=== PATIENT | female | born 1950 | race African-American/Black ===

== ENCOUNTER 2016-12-13 14:24 | Emergency (ER) | payer OTHER ==
[~2016-12-13] VITALS: Ht 152.4 cm; Wt 94.0 kg
[~2016-12-13 14:24] MED LIST: 1-ME1LIQ PO; IBUP-238 PO; LANS30 PO; NOVO7030P2 SQ; ZOLP10TA3 PO
[2016-12-13 14:27] VITALS: BP 168/74; PULSE 69; RESP 13; TEMP 98; O2SAT 99
[2016-12-13] MEDS ORDERED: NOVOINJ2 SQ ×2 (15:11)
--- NOTE | 2016-12-13 15:12 | PD ---
HPI Chief Complaint: Medication Refill Request Time Seen by Provider: 15:08 Travel History International Travel<30 days: No Contact w/Intl Traveler<30days: No Traveled to known affect area: No History of Present Illness HPI 66-year-old female presents to the emergency department requesting refill on her NovoLog 70/30 insulin pen. She last took her medication yesterday morning. She does not check her blood sugars. She had an appointment with primary care provider on Friday and they canceled her appointment because he is leaving town and she will reschedule appointment after December 23 when he comes back into town. She denies symptoms of hyperglycemia or hypoglycemia. She has no other medical complaints. Denies chest pain, shortness of breath, abdominal pain, nausea, vomiting. Allergies to lisinopril and metformin. No other modifying factors or associated signs and symptoms. PFSH Past Medical History Arthritis: Yes Asthma: No Autoimmune Disease: No Blood Disorders: No Anxiety: No Depression: Yes Heart Rhythm Problems: No Cancer: No Cardiovascular Problems: Yes High Cholesterol: Yes Chemotherapy: No Chest Pain: No Congestive Heart Failure: No COPD: Yes Cerebrovascular Accident: No Diabetes: Yes Diminished Hearing: No Endocrine: Yes Gastrointestinal Disorders: Yes GERD: Yes Glaucoma: Yes Genitourinary: No Headaches: Yes Hepatitis: No Hiatal Hernia: No Hypertension: Yes Immune Disorder: No Kidney Stones: No Musculoskeletal: Yes Neurologic: Yes Psychiatric: Yes Reproductive: No Respiratory: Yes (BRONCHITIIS . SINUSITIS) Migraines: No Myocardial Infarction: No Radiation Therapy: No Renal Failure: No Seizures: No Sickle Cell Disease: No Sleep Apnea: No Thyroid Disease: No Ulcer: No Menopausal: Yes Past Surgical History Abdominal Surgery: No AICD: No Appendectomy: No Body Medical Devices: BRONCHITIS, SINUS PROBS Cardiac Surgery: Yes Cholecystectomy: No Ear Surgery: No Endocrine Surgery: No Eye Surgery: No Genitourinary Surgery: No Gynecologic Surgery: No Oral Surgery: No Pacemaker: No Thoracic Surgery: No Other Surgery: Yes (PERICARDITIS WINDOW 1999) Social History Alcohol Use: Yes (RARELY) Tobacco Use: No Substance Use: No Allergies-Medications (Allergen,Severity, Reaction): Coded Allergies: lisinopril (Unverified Allergy, Severe, Swelling, 12/13/16) metformin (Unverified Adverse Reaction, Mild, "I SPACE OUT"., 12/13/16) Reported Meds & Prescriptions Reported Meds & Active Scripts Active Novolog Mix 70-30 FlexPen Inj (Insulin Aspart Protam-Asp 70-30 Inj) 300 Unit/3 Ml Pen 30 Units SQ DAILYAC Novolog Mix 70-30 FlexPen Inj (Insulin Aspart Protam-Asp 70-30 Inj) 300 Unit/3 Ml Pen 20 Units SQ HS Reported Novolin 70-30 Inj (Insulin Human Isoph/Insulin Regular) 1,000 Unit/10 Ml Vial 20 Units SQ HS Novolin 70-30 Inj (Insulin Human Isoph/Insulin Regular) 1,000 Unit/10 Ml Vial 30 Units SQ DAILY Review of Systems Except as stated in HPI: all other systems reviewed are Neg Physical Exam Narrative GENERAL: Well-nourished, well-developed female patient, in no acute distress SKIN: Warm and dry. HEAD: Atraumatic. Normocephalic. EYES: Pupils equal and round. No scleral icterus. No injection or drainage. ENT: Mucosa pink and moist. Airway patent. NECK: Trachea midline. CARDIOVASCULAR: Regular rate. GASTROINTESTINAL: Obese. MUSCULOSKELETAL: No obvious deformities. No clubbing. No cyanosis. No edema. NEUROLOGICAL: Awake and alert. Oriented 3. No obvious cranial nerve deficits. Motor grossly within normal limits. Normal speech. PSYCHIATRIC: Appropriate mood and affect; insight and judgment normal. Data Data Last Documented VS Vital Signs Date Time Temp Pulse Resp B/P (MAP) Pulse Ox O2 Delivery O2 Flow Rate FiO2 12/13/16 15:30 12/13/16 14:27 98.0 69 13 99 Orders Orders Ed Discharge Order (12/13/16 15:17) MDM Medical Decision Making Medical Screen Exam Complete: Yes Emergency Medical Condition: Yes Medical Record Reviewed: Yes Differential Diagnosis Medication refill, hypoglycemia, hyperglycemia Narrative Course 66-year-old female presents to the emergency department for medication refill on NovoLog 70/30. Last taken yesterday. Denies symptoms of hyper or hypoglycemia. 1515: Bedside glucose 303. I spoke with Dr. Narayan, my attending physician , and he agrees the patient is stable for discharge without coverage. Prescriptions for NovoLog flexpen 70/30 prescribed for home. Patient has follow -up appointment with primary care provider after December 23. Instructed patient to follow up with primary care provider. Instructed patient to follow up with primary care provider. Patient verbalizes understanding and agreement with treatment plan. Patient is medically cleared and stable for discharge. Discussed reasons to return to the emergency department. Patient agrees with treatment plan. The patients vital signs are stable and the patient is stable for outpatient follow-up and treatment. Patient discharged home, stable and in no acute distress. Diagnosis Primary Impression: Medication refill Additional Impression: High blood sugar Referrals: [facility] Primary Care Physician Patient Instructions: Diabetic Hyperglycemia (ED), General Instructions, Medication Refill, ED Additional Instructions: Follow-up with primary care provider Return to the emergency department immediately with worsening of symptoms Med/Other Pt SpecificInfo: Prescription(s) given Scripts Insulin Aspart Protam-Asp 70-30 Inj (Novolog Mix 70-30 FlexPen Inj) 300 Unit/3 Ml Pen 30 UNITS SQ DAILYAC for Blood Sugar Management, #1 PEN 0 Refills Prov: Mariam Otto 12/13/16 Insulin Aspart Protam-Asp 70-30 Inj (Novolog Mix 70-30 FlexPen Inj) 300 Unit/3 Ml Pen 20 UNITS SQ HS for Blood Sugar Management, #1 PEN 0 Refills Prov: Mariam Otto 12/13/16 Disposition: 01 DISCHARGE HOME Condition: Stable Mariam Otto Dec 13, 2016 15:12
[2016-12-13] MEDS ORDERED: NOVO7030P2 SQ ×2 (15:23)
== END 2016-12-13 15:31 | disposition home or self-care (01) ==
LOC: NEPK 14:24
DX: Z76.0 Encounter for issue of repeat prescription (principal); E11.65 Type 2 diabetes mellitus with hyperglycemia; M19.90 Unspecified osteoarthritis, unspecified site; F32.9 Major depressive disorder, single episode, unspecified; E78.00 Pure hypercholesterolemia, unspecified; J44.9 Chronic obstructive pulmonary disease, unspecified; I10 Essential (primary) hypertension; K21.9 Gastro-esophageal reflux disease without esophagitis; H40.9 Unspecified glaucoma
CPT/HCPCS: 99281